=== PATIENT | female | born 1945 ===

== ENCOUNTER 2024-02-28 06:10 | Day surgery (SDC) | payer OTHER ==
[2024-02-20 08:44] VITALS: BP 102/64
[2024-02-20 08:47] LABS: HEMATOCRIT 38.3 % (36.0-45.00); HEMOGLOBIN 13.4 g/dL (12.0-15.00); MEAN CELL VOLUME 94.3 fL (80.00-100.00); MEAN CORPUSCULAR HEMOGLOBIN 32.9 pg (27.00-32.0); MEAN CORPUSCULAR HGB CONC 34.9 g/dl (32.0-36.0); PLATELET COUNT 232 K/uL (150-450); RED BLOOD COUNT 4.06 M/uL (4.00-6.00); RED CELL DISTRIBUTION WIDTH 14.3 % (11.5-14.5)
[2024-02-20 09:15] LABS: INR 0.98; PARTIAL THROMBOPLASTIN TIME 24.5 SECONDS (22.0-34.0); PROTHROMBIN TIME 10.7 SECONDS (9.0-11.5)
[2024-02-20 09:27] LABS: ALBUMIN 3.9 gm/dL (3.4-5.0); BILIRUBIN TOTAL 0.5 mg/dL (0.3-1.2); CALCIUM 9.4 mg/dL (8.5-10.1); CREATININE SERUM 0.69 mg/dL (0.55-1.02); GFR 82.72; GLOBULINA 3.3 G/DL (2.4-3.5); POTASSIUM 4.42 mEq/L (3.5-5.1); TOTAL PROTEIN 7.2 gm/dL (6.4-8.2)
[2024-02-20 11:24] LABS: URINE APPEARANCE Clear; URINE BILIRRUBIN Negative (NEGATIVE); URINE BLOOD Negative; URINE COLOR Yellow; URINE GLUCOSE Negative (NEGATIVE); URINE KETONE Negative (NEGATIVE); URINE LEUKOCYTE Moderate; URINE NITRATE Negative; URINE PROTEIN Negative (NEGATIVE); URINE UROBILINOGEN 0.2 E.U./dl
[2024-02-20 11:28] LABS: URINE EPITHELIAL CELLS 32.6 uL (0.0-38.8); URINE RBC 6.2 uL (0.0-20.8); URINE WBC 31.3 uL (0.0-23.2)
[~2024-02-28] VITALS: Ht 157.5 cm; Wt 55.8 kg
[~2024-02-28 06:10] MED LIST: ACIDO FOLICO; COMBIGAN EYE DRO5 ML; LIPITOR; METHROTEXATE; PAXIL 10MG; PEPCID; SYNTHROID75 MCG
[2024-02-28] MEDS ORDERED: CHLORHEXIDINE GLUCONATE 120 ML BOTTLE TOP ONE (10:00)
[2024-02-28] MEDS ORDERED: CEFAZOLIN SODIUM 1,000 MG VIAL IV ONE (10:00)
[2024-02-28] MEDS ORDERED: DOXYCYCLINE HY100 M2 PO (10:28)
[2024-02-28] MEDS ORDERED: IBU600 MG PO (10:29)
[2024-02-28] MEDS ORDERED: ACETAMINOPHEN 500 MG TABLET PO ONE (13:30)
== END 2024-02-28 15:40 | disposition home or self-care (01) ==
LOC: CIR.AMB 06:10
PROVIDERS: ATTEND Obstetrics & Gynecology
DX: D25.0 Submucous leiomyoma of uterus (principal); N84.0 Polyp of corpus uteri; N95.0 Postmenopausal bleeding; Z91.013 Allergy to seafood